=== PATIENT | female | born 1950 ===

== ENCOUNTER 2024-07-14 05:07 | Emergency (ER) | payer BC, SELFPAY ==
[2024-07-14 05:20] VITALS: BP 177/104
[2024-07-14 05:41] VITALS: BMI 39.2
[2024-07-14 06:04] LABS: % Eosinophils 2.3 % (0-6); % Immature Granulocytes 0.5 % (0-0.5); % Monocytes 5.8 % (1.7-9.3); % Neutrophils 65.4 % (42.2-75.2); Absolute Basophils 0.1 10^3/uL (0-0.2); Absolute Eosinophils 0.2 10^3/uL (0-0.7); Absolute Immature Granulocytes 0.1 10^3/uL (0-0.05); Absolute Lymphocytes 2.4 10^3/uL (1.2-3.4); Absolute Monocytes 0.6 10^3/uL (0.1-0.6); Absolute Neutrophils 6.2 10^3/uL (1.4-6.5); Hematocrit 42.5 % (37.0-47.0); Hemoglobin 14.3 g/dL (12.0-16.0); Mean Corp Hgb Conc. 33.6 g/dL (33.0-37.0); Mean Corpuscular Hgb 28.8 pg (27.0-31.0); Mean Corpuscular Volume 85.7 fL (81.0-99.0); Mean Platelet Volume 8.8 fL (7.4-10.4); Nucleated Red Blood Cells % 0 %; Platelet Count 344 10^3/uL (130-400); Red Blood Cell Count 4.96 10^6/uL (4.20-5.40); Red Cell Dist. Width 13.4 % (11.5-14.5); White Blood Cell Count 9.4 10^3/uL (4.8-10.8)
[2024-07-14 06:23] LABS: ALT (SGPT) 20 U/L (0-35); AST (SGOT) 29 U/L (14-36); Albumin 4.3 g/dl (3.5-5.0); Alkaline Phosphatase 121 U/L (38-126); Blood Urea Nitrogen 11 mg/dl (7-17); Carbon Dioxide 22 mmol/L (22-30); Chloride 108 mmol/L (98-107); Estimated Creatinine Clearance 70 ml/min; Glucose 107 mg/dl (70-99); Potassium 4.4 mmol/L (3.5-5.1); Sodium 143 mmol/L (135-145); Total Bilirubin 0.6 mg/dl (0.2-1.3); eGFR > 60.00
[2024-07-14 06:35] LABS: Troponin I < 0.012 ng/ml
[2024-07-14 07:00] VITALS: BP 136/71
--- NOTE | 2024-07-14 07:30 | ED.GENMED ---
History of Present Illness
General
Chief Complaint: Heart Rate Problem
Source: patient
Exam Limitations: none
Time Seen by Provider: 07/14/24 07:16
History of Present Illness
History of Present Illness:
73-year-old female presents with complaints of palpitations that woke her up from sleep at 330 this morning. She states her heart felt fast and irregular. This was coming and going. This lasted about an hour and a half. Since she has been here
she has not felt it. At times it felt like there was a pause in her heartbeat. She denies any current chest pain. She has a history of hypothyroidism is on Synthroid. She is on amlodipine. She had similar symptoms about 3 years ago and had a
stress echo as well as a Holter monitor through cardiology at [place] this workup was negative. She denies any leg swelling or calf pain. No recent travel. No other complaints at this time
Phy Exam
Physical Exam
Physical Exam:
General: Well-appearing female no acute respiratory distress
HEENT normocephalic atraumatic
Heart: Regular rate and rhythm no murmurs
Lungs: Clear no wheeze
Extremities: No cyanosis or edema
Abdomen soft nontender nondistended no guarding or rebound
Course
Orders/Labs/Results
Orders:
Orders
07/14/24 05:09
EKG [Electrocardiogram (*1)] Urgent
Reason for Study: Tachycardia
07/14/24 05:10
EKG- Treatment ONCE
07/14/24 05:57
CMP [Comprehensive Metabolic Panel] Urgent
Complete Blood Count/With Diff Urgent
TSH Urgent
Comment: ADD ON
Troponin I Urgent
07/14/24 07:04
Add On- LAB Urgent
Tests Added?: TSH
07/14/24 07:36
Troponin I Urgent
Abnormal Lab Results
07/14/24
05:57
Abs Immat Gran (auto) 0.1 H 10^3/uL
(0-0.05)
Chloride 108 H mmol/L
(98-107)
Glucose 107 H mg/dl
(70-99)
07/14/24 05:57
07/14/24 05:57
Vital Signs
Initial and Last Documented VS:
Initial Vital Signs
Temp Pulse Resp BP Pulse Ox
98.5 F 97 22 177/104 97
07/14/24 05:20 07/14/24 05:20 07/14/24 05:20 07/14/24 05:20 07/14/24 05:20
Last Documented Vital Signs
Temp Pulse Resp BP Pulse Ox
98.5 F 84 18 136/71 97
07/14/24 05:20 07/14/24 07:46 07/14/24 07:46 07/14/24 07:46 07/14/24 07:46
MDM/Problems Addressed
Differential Diagnosis Includes:
Patient woke up with a irregular heartbeat sensation. No current chest pain. She states his symptoms have resolved. EKG shows sinus rhythm without ischemic changes. No arrhythmias noted on the monitor. Labs reviewed with negative troponin. TSH
pending. Repeat troponin pending as well. Patient has been stable.
*Critical Care Note
Total Time (30-74mins, 75-104mins- exclusive of procedures): Not Applicable
Update Note
Update Note:
Repeat and initial troponin both undetectable. No arrhythmias on monitor patient has been sent since arrival. TSH within normal limits. Patient be discharged home with palpitations. 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
further evaluation
ED Attending Note
-
Portions of this chart may have been created with voice recognition software.� Occasional wrong word or��sound alike� substitutions may have occurred due to the inherent limitations of voice recognition software.
Discharge Plan
Departure
Patient Disposition: Home (Routine Discharge)
Date of Disposition: 07/14/24
Time of Disposition: 09:08
Patient with high blood pressure during this ER visit?: No
Discharge Problem:
Heart palpitations
Instructions: Palpitations (DC)
Referrals:
NONE,* [Family Provider] -
Activity Restrictions/Additional Instructions:
Stay hydrated peer return if worse otherwise follow-up with your Daniel
Interventions
Interventions:
*Risk Screen - Suicide Last Done: 07/14/24 05:20
*General Assessment Last Done: 07/14/24 05:20
*Neglect/Abuse Screening Last Done: 07/14/24 05:20
ED- Fall Risk Assessment Last Done: 07/14/24 05:20
*ED COVID-19 Vaccine History Last Done: 07/14/24 05:20
ED- Cardiac Assessment Last Done: 07/14/24 05:52
ED- Pulmonary Assessment Last Done: 07/14/24 05:51
Discharge Date and Time
Print Language: BULGARIAN
[2024-07-14 07:46] VITALS: BP 136/71
[2024-07-14 08:20] LABS: Troponin I < 0.012 ng/ml
[2024-07-14 09:27] VITALS: BP 113/76
== END 2024-07-14 10:07 | disposition home or self-care (01) ==
LOC: EMR 05:07
PROVIDERS: Physician Assistant; EMERGENCY PHYSICIAN Student in an Organized Health Care Education/Training Program
DX: R00.2 Palpitations (principal); E03.9 Hypothyroidism, unspecified; Z79.899 Other long term (current) drug therapy
CPT/HCPCS: 99284; 80053; 84443; 84484; 85025; 93005